=== PATIENT | male | born 1970 | race Caucasian/White ===

== ENCOUNTER 2016-09-27 12:48 | Observation (INO) | payer OTHER ==
--- NOTE | 2016-09-27 12:59 | CPEKG ---
Heart Rate: 95 RR Interval: 632 P-R Interval: 212 QRSD Interval: 82 QT Interval: 352 QTC Interval: 443 P [place]: 43 QRS [place]: 34 T Wave [place]: 51 EKG Severity - ABNORMAL ECG - EKG Impression: SINUS RHYTHM EKG Impression: FIRST DEGREE AV BLOCK Electronically Signed By: Atilio Andrade 27-Sep-2016 13:56:55
[2016-09-27 13:21] LABS: % IMMATURE GRANULYOCYTES 0.2 % (0.0-1.1); ABSOLUTE IMMATURE GRANULOCYTES 0.01 10^3/uL (0.00-0.10); ADD DIFF? NO; ADD MORPH? NO; ADD SCAN? NO; ATYPICAL LYMPHOCYTE FLAG 0 (0-99); FRAGMENT RBC FLAG 0 (0-99); HEMATOCRIT 47.3 % (40.0-51.0); HEMOGLOBIN 15.8 g/dL (13.7-17.5); LEFT SHIFT FLG 0 (0-99); LIPEMIA HEMOLYSIS FLAG 80 (0-99); MEAN CELL HEMOGLOBIN 29.3 pg (27.9-34.1); MEAN CELL HEMOGLOBIN CONCENTR. 33.4 g/dL (32.4-36.7); MEAN CELL VOLUME 87.8 fL (81.5-99.8); MEAN PLATELET VOLUME 10.4 fL (8.7-11.7); PLATELET CLUMPS FLAG 10 (0-99); PLATELET COUNT 210 10^3/uL (150-400); RED BLOOD CELL COUNT 5.39 10^6/uL (4.40-6.38); RED CELL DISTRIBUTION WIDTH 12.3 % (11.5-15.2)
[2016-09-27 13:41] LABS: ANION GAP 12 mEq/L (8-16); CALCIUM 9.3 mg/dL (8.5-10.4); CARBON DIOXIDE 25 mEq/l (22-31); CHLORIDE 104 mEq/L (97-110); CREATININE 0.8 mg/dL (0.7-1.3); GLOMERULAR FILTRATION RATE > 60; GLUCOSE 90 mg/dL (70-100); POTASSIUM 3.9 mEq/L (3.5-5.2); SODIUM 141 mEq/L (134-144)
[2016-09-27 13:52] LABS: TROPONIN I < 0.012 ng/mL (0-0.034)
--- NOTE | 2016-09-27 13:54 | EDPHY ---
General Narrative: CHIEF COMPLAINT: Chest Pain, palpitations HISTORY OF PRESENT ILLNESS: patient noted some racing of his heart around 8 or 8:15 a.m. this morning. He said he felt that beating quickly, his watch showed that he had elevated heart rate. He said that he felt a little short of breath and lightheaded from it. This was during meetings at work today. He attempted to walk around with a co-worker to see if he feels better but he did not. This lasted for over 2 hours. Around 10:00 a.m. he noted pain with this the left side of the chest. This radiated to the left shoulder and arm. Went to [facility] [place]. They administered aspirin but did not have any EKG machine. He was transported here by ambulance. Symptoms persisted while heart rate was up and have nearly resolved at this time. No fever chills. No cough. No recent travel or surgery. No history of venous thrombolic event. No prior cardiac workup. No medical diagnoses and medications. FAMILY HISTORY CARDIAC: Negative PRIOR CARDIAC WORKUP: none REVIEW OF SYSTEMS: Ten systems reviewed and are negative unless otherwise noted in the HPI EXAMINATION: General Appearance: Alert, no distress Head: normocephalic, atraumatic Eyes: Pupils equal and round, no conjunctival pallor or injection ENT, Mouth: Mucous membranes moist. Uvula midline. No erythema or edema. Neck: Normal inspection, supple, non-tender Respiratory: Lungs are clear to auscultation . No wheezing, rhonchi or crackles. Cardiovascular: Regular rate and rhythm . No murmur. Pulses intact distally and symmetrically with 2+ radial and DP pulses. Gastrointestinal: Abdomen is soft and nontender Back: non-tender, no bony abnormalities Neurological: A&O, nonfocal, normal gait Skin: Warm and dry, no rash Extremities: Nontender, no pedal edema . No palpable cords. No evidence of DVT. Psychiatric: Mood and affect normal DIFFERENTIAL DIAGNOSES: Including but not limited to in no particular order: Acute Chest Pain, ACS, Stable Angina, Pneumonia, PE, duodenitis, gastritis, esophagitis, GERD MDM: 1:52 p.m. acute chest pain and palpitations. Patient describes scenario that suggest paroxysmal atrial fibrillation. The EKG from here is unremarkable for ischemia. The ambulance 12 lead EKG does show sinus tachycardia. Laboratory studies are pending at this time. 2:58 p.m. chest pain and palpitations without any evidence of EKG change or abnormality on the rhythm strips here. Labs are within normal limits. I suspect that this is not coronary artery disease, but his time frame is still within the window for ACS. Thus I have contacted the hospitalist Dr. Camp will admit the patient for observation. He is resting comfortably in no acute distress at this time. He is comfortable with our plan. EKG: Interpreted by Dr. Andrade. No previous EKG on file for comparison. SUPERVISION: This patient was independently evaluated without the aide of supervising physician. - History Smoking Status: Never smoked - Objective Vital Signs: Initial Vital Signs Temperature (C) 98.8 F 09/27/16 12:50 Heart Rate 96 09/27/16 12:50 Respiratory Rate 18 09/27/16 12:50 Blood Pressure 130/85 H 09/27/16 12:50 O2 Sat (%) 97 09/27/16 12:50 O2 Delivery Mode Room Air Allergies/Adverse Reactions: No Known Allergies Allergy (Unverified 09/27/16 13:13) Home Medications: Medication Instructions Recorded NK [No Known Home Meds] 09/27/16 Laboratory Results: Laboratory Results 09/27/16 13:00 09/27/16 13:00 09/27/16 09/27/16 09/27/16 13:05 13:00 13:00 WBC 5.36 10^3/uL 10^3/uL (3.80-9.50) RBC 5.39 10^6/uL 10^6/uL (4.40-6.38) Hgb 15.8 g/dL g/dL (13.7-17.5) Hct 47.3 % % (40.0-51.0) MCV 87.8 fL fL (81.5-99.8) MCH 29.3 pg pg (27.9-34.1) MCHC 33.4 g/dL g/dL (32.4-36.7) RDW 12.3 % % (11.5-15.2) Plt Count 210 10^3/uL 10^3/uL (150-400) MPV 10.4 fL fL (8.7-11.7) Neut % (Auto) 74.8 % H % (39.3-74.2) Lymph % (Auto) 19.0 % % (15.0-45.0) [place] % (Auto) 5.2 % % (4.5-13.0) Eos % (Auto) 0.2 % L % (0.6-7.6) Baso % (Auto) 0.6 % % (0.3-1.7) Nucleat RBC Rel Count 0.0 % % (0.0-0.2) Absolute Neuts (auto) 4.01 10^3/uL 10^3/uL (1.70-6.50) Absolute Lymphs (auto) 1.02 10^3/uL 10^3/uL (1.00-3.00) Absolute Monos (auto) 0.28 10^3/uL L 10^3/uL (0.30-0.80) Absolute Eos (auto) 0.01 10^3/uL L 10^3/uL (0.03-0.40) Absolute Basos (auto) 0.03 10^3/uL 10^3/uL (0.02-0.10) Absolute Nucleated RBC 0.00 10^3/uL 10^3/uL (0-0.01) Immature Gran % 0.2 % % (0.0-1.1) Immature Gran # 0.01 10^3/uL 10^3/uL (0.00-0.10) Sodium 141 mEq/L mEq/L (134-144) Potassium 3.9 mEq/L mEq/L (3.5-5.2) Chloride 104 mEq/L mEq/L (97-110) Carbon Dioxide 25 mEq/l mEq/l (22-31) Anion Gap 12 mEq/L mEq/L (8-16) BUN 12 mg/dL mg/dL (7-23) Creatinine 0.8 mg/dL mg/dL (0.7-1.3) Estimated GFR > 60 Glucose 90 mg/dL mg/dL (70-100) Calcium 9.3 mg/dL mg/dL (8.5-10.4) Troponin I < 0.012 ng/mL ng/mL (0-0.034) TSH 1.970 uIU/mL uIU/mL (0.465-4.680) Departure - Departure Condition: Good Referrals: NONE *PRIMARY CARE P,. [Primary Care Provider] - As per Instructions
[2016-09-27] MEDS ORDERED: NITROGLYCERIN 0.4 MG BTL SL PRN (15:22)
[2016-09-27] MEDS ORDERED: ACETAMINOPHEN 325 MG TAB PO PRN (15:23)
[2016-09-27] MEDS ORDERED: ONDANSETRON 4 MG/2 ML VIAL IVP PRN (15:23)
--- NOTE | 2016-09-27 16:41 | GHP ---
[f rep st] HISTORY AND PHYSICAL DATE OF ADMISSION: 09/27/2016 CHIEF COMPLAINT: Palpitations, chest pain. HISTORY OF PRESENT ILLNESS: a 46-year-old male with no past medical history, presenting with racing heart and chest pain. This morning, he was sitting at his desk and felt his heart racing, and noted on his watch that his heart rate was 120. Along with the racing heart, he complained of shortness of breath, dizzy, and dizziness. He has had similar episodes in the past, but not as bad. Usually, they are provoked by stress, and he can relax and symptoms subside quickly. He reports increased stress over the past 2 months with his job. He had a 9 a.m. meeting that was stressful, and symptoms lasted until 10 a.m. He then had an unpleasant meeting with a customer at 10:30, and symptoms persisted until 11:30, thus, he asked his friend to take him to the hospital. He also complained of mild left-sided chest pressure and left arm numbness. He is currently chest pain free. REVIEW OF SYSTEMS: A completed 10-point review of systems negative except as noted in the HPI. PAST MEDICAL HISTORY: None. PAST SURGICAL HISTORY: Appendectomy. SOCIAL HISTORY: Manages tech support, very stressful. Does not exercise on a regular basis. No tobacco or illicits. Drinks wine, half a glass weekly. Lives in [place]. FAMILY HISTORY: Paternal grandmother with an WA. Father with hypertension, dementia, and an WA. MEDICATIONS: None. DRUG ALLERGIES: None. PHYSICAL EXAMINATION: VITAL SIGNS: Temperature 36.4, blood pressure 133/87, heart rates 84-110 here, respirations 18, 97% on room air. GENERAL: Sitting up in bed, smiling in no acute distress. HEENT: PERRLA, EOMI. Oropharynx clear. CV: Regular rate and rhythm. No murmurs, gallops, rubs. LUNGS: Clear to auscultation bilaterally. ABDOMEN: Soft, nontender, nondistended. Positive bowel sounds. : No Garcias. No suprapubic tenderness. MUSCULOSKELETAL: 5/5 upper and lower extremity strength. NEURO: 2 through 12 intact. PSYCH: Alert and oriented x3. LABS: WBC 5.3, hemoglobin 15, hematocrit 47, platelets 210. Sodium 141, potassium 3.9, chloride 109, carbon dioxide 25, BUN 12, creatinine 0.8, glucose 90, calcium 9.3. Troponin less than 0.012. TSH 1.9. Chest x-ray personally reviewed by me: No effusion or evidence of pneumonia. EKG is personally reviewed by me: First-degree heart block. ASSESSMENT AND PLAN: 1. Atypical chest pain: concerning symptoms concerning include left arm numbness and chest pressure. He has a family history of coronary artery disease , including his grandmother and father. Initial troponin and EKG were negative here. I will repeat both of these. Exercise treadmill in the morning. Will check lipids and A1c. 2. Tachycardia: This has been intermittent since this morning. Has first- degree heart block. No evidence of arrhythmia currently. Given tachycardia, we will check a D-dimer to rule out pulmonary embolism. 3. Diet: Regular. 4. Deep vein thrombosis prophylaxis: Ambulating. 5. Triglyceridemia: Patient with elevated triglycerides in 2013. Repeat those here. Reasonable to start with exercise. He reports a good diet. Repeating in the morning. DISPOSITION: Patient warrants observation admission given acute chest pressure concerning for ACS versus PE. Continue telemetry overnight and exercise treadmill in the morning. /[id number]/MODL MTDD
[2016-09-27 17:38] LABS: HEMOGLOBIN A1C 5.3 % (4.0-6.0)
--- NOTE | 2016-09-27 20:05 | CPEKG ---
Heart Rate: 79 RR Interval: 759 P-R Interval: 212 QRSD Interval: 86 QT Interval: 372 QTC Interval: 427 P [place]: 30 QRS [place]: 66 T Wave [place]: 64 EKG Severity - ABNORMAL ECG - EKG Impression: SINUS RHYTHM EKG Impression: FIRST DEGREE AV BLOCK EKG Impression: ST ELEV, PROBABLE NORMAL EARLY REPOL PATTERN Electronically Signed By: Campos Steele 29-Sep-2016 09:34:21
[2016-09-28 06:13] VITALS: O2SAT 94
[2016-09-28 07:21] VITALS: BP 103/67; PULSE 76; RESP 17; TEMP 98.1
[2016-09-28 07:40] LABS: CHOLESTEROL 165 mg/dL (140-200); CHOLESTEROL/HDL RATIO 3.93 RATIO (1.00-4.97); HIGH DENSITY LIPOPROTEIN 42 mg/dL (40-65); LDL/HDL RATIO 2.48 RATIO (1.00-3.64); LOW DENSITY LIPOPROTEIN 104 mg/dL (70-100); NON-HIGH DENSITY LIPOPROTEIN 123 mg/dL (90-129); TRIGLYCERIDE 98 mg/dL (40-150); VERY LOW DENSITY LIPOPROTEINS 19 mg/dL (8-25)
--- NOTE | 2016-09-28 10:53 | PDCARST ---
CAR Stress Test Results Type of Stress Test: TM stress test Indication: cp Description of Procedure: After informed consent was obtained, pt was established to ECG, HR, oximetry, blood pressure monitoring. At b/l, pt has SR, BP 108/78, HR 93, and O2 sat wnl. Pt exercised for a total of 10 minutes. There were no ischemic changes. Peak BP 144/84. No cp. Pt achieved HR of 178, which is 102% of MPHR for age. In recovery, BP, HR, and ecg remained wnl. Impression: DTS +10 Conclusion: Normal TM stress test
--- NOTE | 2016-09-28 12:14 | GDS ---
[f rep st] DISCHARGE SUMMARY CHIEF COMPLAINT: Tachycardia, chest pain. HISTORY OF PRESENT ILLNESS: Patient is a 46-year-old male with no significant past medical history presenting with racing heart and chest pain day of admission. That morning he was sitting at his desk at work. He felt his heart racing. Noticed that it was elevated to 120s on his watch. Along with the racing heart he had shortness of breath and dizziness. He has had similar episodes in the past which are usually provoked by stress at work. He has had increased stressors over the past 2 months with his job as well as several deaths in the family. On the date of admission he had an a.m. meeting that was stressful, and symptoms lasted until 9:00 a.m. He then had a subsequent unpleasant meeting at 10:30 a.m. and symptoms persisted until 11:30; thus he presented to the emergency room. He did have a little bit of mild chest pressure and left arm numbness. ASSESSMENT AND PLAN: 1. Atypical chest pain: concerning symptoms included chest pain, left arm numbness and family history of CAD. Had an exercise treadmill that was negative and he exercised for 10 minutes. D-dimer was negative. Suspect due to stress and component of anxiety; he now reports "panic attacks". Recommended relaxation techniques daily, and to follow up with his PCP if this does not improve. 2. Tachycardia: D-dimer was negative for PE. No e/p arrhythmia. Again, likely secondary to the increased stress and anxiety. CONDITION ON DISCHARGE: The patient is stable for discharge. MEDICATIONS: No new medications. /[id number]/MODL MTDD
== END 2016-09-28 11:55 | disposition home or self-care (01) ==
LOC: EDUNIT# → F1N 15:22
PROVIDERS: ADMIT Hospitalist; ATTEND Internal Medicine
DX: R07.9 Chest pain, unspecified (principal); R00.0 Tachycardia, unspecified; F43.9 Reaction to severe stress, unspecified
CPT/HCPCS: 71020; 93005; 93017; G0378

== ENCOUNTER 2016-10-18 09:10 | Emergency (ER) | payer OTHER ==
[2016-10-18 09:23] VITALS: RESP 16; TEMP 97.7
[2016-10-18] MEDS ORDERED: ONDANSETRON 4 MG/2 ML VIAL IVP ONE (09:41)
[2016-10-18] MEDS ORDERED: HYDROmorphONE/DILAUDID 1 MG/ML SYR IVP ONE (09:41)
[2016-10-18] MEDS ORDERED: NS 1,000 ML IV ONE (09:41)
[2016-10-18 09:48] LABS: COLOR AMBER; LEUKOCYTE ESTERASE,URINE NEGATIVE (NEGATIVE); NITRITE,URINE NEGATIVE (NEGATIVE)
[2016-10-18 09:55] LABS: MUCUS TRACE /lpf (NONE-1+); RBC,URINE 50-182 /hpf (0-3); YEAST PRESENT /hpf (NONE SEEN)
[2016-10-18 09:56] LABS: % IMMATURE GRANULYOCYTES 0.2 % (0.0-1.1); ABSOLUTE IMMATURE GRANULOCYTES 0.01 10^3/uL (0.00-0.10); ADD DIFF? NO; ADD MORPH? NO; ADD SCAN? NO; ATYPICAL LYMPHOCYTE FLAG 0 (0-99); FRAGMENT RBC FLAG 0 (0-99); HEMATOCRIT 46.3 % (40.0-51.0); HEMOGLOBIN 15.5 g/dL (13.7-17.5); LEFT SHIFT FLG 0 (0-99); LIPEMIA HEMOLYSIS FLAG 80 (0-99); MEAN CELL HEMOGLOBIN 28.5 pg (27.9-34.1); MEAN CELL HEMOGLOBIN CONCENTR. 33.5 g/dL (32.4-36.7); MEAN CELL VOLUME 85.3 fL (81.5-99.8); MEAN PLATELET VOLUME 10.3 fL (8.7-11.7); PLATELET CLUMPS FLAG 0 (0-99); PLATELET COUNT 204 10^3/uL (150-400); RED BLOOD CELL COUNT 5.43 10^6/uL (4.40-6.38); RED CELL DISTRIBUTION WIDTH 12.4 % (11.5-15.2)
[2016-10-18 09:57] LABS: BACTERIA NONE SEEN /hpf (NONE SEEN)
[2016-10-18 10:14] LABS: ANION GAP 8 mEq/L (8-16); CALCIUM 9.2 mg/dL (8.5-10.4); CARBON DIOXIDE 28 mEq/l (22-31); CHLORIDE 103 mEq/L (97-110); CREATININE 0.9 mg/dL (0.7-1.3); GLOMERULAR FILTRATION RATE > 60; GLUCOSE 135 mg/dL (70-100); POTASSIUM 3.9 mEq/L (3.5-5.2); SODIUM 139 mEq/L (134-144)
--- NOTE | 2016-10-18 10:35 | EDPHY ---
H & P Stated Complaint: RLQ and Flank pain Time Seen by Provider: 10/18/16 09:36 HPI/ROS: Chief complaint: Right flank pain History of present illness: This is a 46-year-old male who presents to the emergency department for right flank pain. Patient reports the onset of symptoms this morning. He describes a sharp pain radiating around towards his groin. He has had associated nausea without vomiting and some discomfort with urination. He denies precipitating factors. He denies alleviating factors. He denies other associated signs or symptoms including no fevers, no abdominal pain, no diarrhea or constipation. He has had a kidney stone before and this feels similar. Review of systems: A 10 point review of systems was obtained and other than described above is negative - Personal History Current Tetanus Diphtheria and Acellular Pertussis (TDAP): Yes - Medical/Surgical History Hx Asthma: No Hx Chronic Respiratory Disease: No Hx Diabetes: No Hx Cardiac Disease: No Hx Renal Disease: No Hx Cirrhosis: No Hx Alcoholism: No Hx HIV/AIDS: No Hx Splenectomy or Spleen Trauma: No Other PMH: appendectomy, Kidney stones, Racing heart - Social History Smoking Status: Never smoked - Physical Exam Exam: General Appearance: Alert, nontoxic. Eyes: Pupils equal and round no pallor or injection. ENT, Mouth: Mucous membranes moist. Respiratory: There are no retractions, lungs are clear to auscultation. Cardiovascular: Regular rate and rhythm. Gastrointestinal: Abdomen is soft and nontender, no masses, bowel sounds normal. Genitourinary: Mild right-sided CVA tenderness. Neurological: Alert and oriented. Strength and sensation intact and symmetrical. Ambulating without difficulty. Skin: Warm and dry, no rashes. Musculoskeletal: Neck is supple nontender. Extremities are symmetrical, full range of motion. Psychiatric: Patient is oriented X 3, there is no agitation. Constitutional: Initial Vital Signs Temperature (C) 36.5 C 10/18/16 09:19 Heart Rate 56 L 10/18/16 09:19 Respiratory Rate 16 10/18/16 09:19 Blood Pressure 162/102 H 10/18/16 09:19 O2 Sat (%) 97 10/18/16 09:19 O2 Delivery Mode Room Air Allergies/Adverse Reactions: No Known Allergies Allergy (Unverified 09/27/16 13:13) Home Medications: Medication Instructions Recorded Hydrocodone/APAP 5/325 [Mina 1 tab PO Q6H #5 tab 10/18/16 5/325 (*)] Medical Decision Making - Diagnostics Imaging: Imaging Impressions Abdomen/Pelvis CT 10/18/16 09:41 Impression: 1. 3 mm x 4 mm stone straddling the right ureterovesical junction, possibly already in the urinary bladder. 2. Peripelvic cysts, left kidney. 3. Lumbar levoscoliosis. I telephoned results to ROXANA Hartman at 1017 hours. Attention: This CT examination is specifically designed to evaluate patients who are clinically suspected of having acute obstructive uropathy. This examination does not use radiographic contrast, and as such, provides only a limited evaluation of the abdomen, pelvis and retroperitoneum. If there is further clinical suspicion for pathological conditions other than obstructive uropathy, a complete CT evaluation of the abdomen and pelvis utilizing intravenous, oral, and rectal contrast should be considered. ED Course/Re-evaluation: Patient seen under the supervision of my secondary supervising physician Dr. Alfred Smith. Patient presents to the emergency department for right flank pain , he has a history of a kidney stone. He is nontoxic. Afebrile and vital signs are stable. On evaluation he does have a 4 x 3 mm stone that appears almost to have past. Pain is well controlled. I believe he is appropriate for outpatient management. He is discharged home. Home care is discussed. Referred to Urology for recheck. Strict return precautions are given. Patient voiced understanding and agreement with plan. Differential Diagnosis: Included but not limited to nephrolithiasis, urinary tract infection, colitis, musculoskeletal pain - Data Points Laboratory Results: Laboratory Results 10/18/16 09:51 10/18/16 09:51 10/18/16 10/18/16 10/18/16 09:51 09:51 09:30 WBC 5.63 10^3/uL 10^3/uL (3.80-9.50) RBC 5.43 10^6/uL 10^6/uL (4.40-6.38) Hgb 15.5 g/dL g/dL (13.7-17.5) Hct 46.3 % % (40.0-51.0) MCV 85.3 fL fL (81.5-99.8) MCH 28.5 pg pg (27.9-34.1) MCHC 33.5 g/dL g/dL (32.4-36.7) RDW 12.4 % % (11.5-15.2) Plt Count 204 10^3/uL 10^3/uL (150-400) MPV 10.3 fL fL (8.7-11.7) Neut % (Auto) 85.7 % H % (39.3-74.2) Lymph % (Auto) 9.6 % L % (15.0-45.0) [place] % (Auto) 4.1 % L % (4.5-13.0) Eos % (Auto) 0.0 % L % (0.6-7.6) Baso % (Auto) 0.4 % % (0.3-1.7) Nucleat RBC Rel Count 0.0 % % (0.0-0.2) Absolute Neuts (auto) 4.83 10^3/uL 10^3/uL (1.70-6.50) Absolute Lymphs (auto) 0.54 10^3/uL L 10^3/uL (1.00-3.00) Absolute Monos (auto) 0.23 10^3/uL L 10^3/uL (0.30-0.80) Absolute Eos (auto) 0.00 10^3/uL L 10^3/uL (0.03-0.40) Absolute Basos (auto) 0.02 10^3/uL 10^3/uL (0.02-0.10) Absolute Nucleated RBC 0.00 10^3/uL 10^3/uL (0-0.01) Immature Gran % 0.2 % % (0.0-1.1) Immature Gran # 0.01 10^3/uL 10^3/uL (0.00-0.10) Sodium 139 mEq/L mEq/L (134-144) Potassium 3.9 mEq/L mEq/L (3.5-5.2) Chloride 103 mEq/L mEq/L (97-110) Carbon Dioxide 28 mEq/l mEq/l (22-31) Anion Gap 8 mEq/L mEq/L (8-16) BUN 18 mg/dL mg/dL (7-23) Creatinine 0.9 mg/dL mg/dL (0.7-1.3) Estimated GFR > 60 Glucose 135 mg/dL H mg/dL (70-100) Calcium 9.2 mg/dL mg/dL (8.5-10.4) Urine Color NATHALIA Urine Appearance MODERATELY TURBID Urine pH 6.0 (5.0-7.5) Ur Specific [place] 1.024 (1.002-1.030) Urine Protein 2+ H (NEGATIVE) Urine Ketones TRACE H (NEGATIVE) Urine Blood 3+ H (NEGATIVE) Urine Nitrate NEGATIVE (NEGATIVE) Urine Bilirubin NEGATIVE (NEGATIVE) Urine Urobilinogen NEGATIVE EU EU (0.2-1.0) Ur Leukocyte Esterase NEGATIVE (NEGATIVE) Urine RBC 50-182 /hpf H /hpf (0-3) Urine WBC 1-3 /hpf /hpf (0-3) Ur Epithelial Cells NONE SEEN /lpf /lpf (NONE-1+) Urine Bacteria NONE SEEN /hpf /hpf (NONE SEEN) Urine Mucus TRACE /lpf /lpf (NONE-1+) Urine Yeast PRESENT /hpf /hpf (NONE SEEN) Ur Culture Indicated? INDICATED H (NI) Urine Glucose NEGATIVE (NEGATIVE) Medications Given: Discontinued Medications Hydromorphone HCl (Dilaudid) 0.5 mg IVP EDNOW ONE Stop: 10/18/16 09:42 Last Admin: 10/18/16 09:52 Dose: 0.5 mg Sodium Chloride (Ns) 1,000 mls @ 0 mls/hr IV ONCE ONE PRN Reason: Wide Open Stop: 10/18/16 09:42 Last Admin: 10/18/16 09:52 Dose: 1,000 mls Ondansetron HCl (Zofran) 4 mg IVP EDNOW ONE Stop: 10/18/16 09:42 Last Admin: 10/18/16 09:53 Dose: 4 mg Departure - Departure Disposition: Home, Routine, Self-Care Clinical Impression: Kidney stone on right side Condition: Good Instructions: Kidney Stones (ED) Additional Instructions: Follow-up with your primary care doctor or urologist this week for recheck In regards to pain control see the following: Use ibuprofen [600] mg [3] times a day for the next 2-3 days for pain In addition You have been prescribed [Mina] for pain. [Mina] contains Tylenol, do not take extra Tylenol/acetaminophen/Apap with it. It is sedating. Drink plenty of fluids to stay hydrated Strain urine to catch the kidney stone if possible If symptoms worsen or new symptoms develop return to the emergency room for recheck Referrals: Chaz Fischer MD [Primary Care Provider] - As per Instructions Mike Shore MD [Medical Doctor] - As per Instructions Prescriptions: Hydrocodone/APAP 5/325 [Mina 5/325 (*)] 1 tab PO Q6H #5 tab
[2016-10-18 11:12] VITALS: BP 132/80; PULSE 63; O2SAT 93
== END 2016-10-18 11:11 | disposition home or self-care (01) ==
DX: N20.0 Calculus of kidney (principal); Z90.49 Acquired absence of other specified parts of digestive tract
CPT/HCPCS: 96374; J1170; J2405

== ENCOUNTER → 2018-11-29 | Outpatient (CLI) | payer OTHER | LOC: FIMAGING 07:09 | PROVIDERS: ATTEND Internal Medicine | DX: R10.11 Right upper quadrant pain (principal); R10.33 Periumbilical pain ==